=== PATIENT | female | born 1985 | race Hispanic/Latino ===

== ENCOUNTER 2017-03-28 20:29 | Emergency (ER) | payer BC, MEDICAID ==
[2017-03-28 21:14] VITALS: BMI 32.5
[2017-03-28 21:44] LABS: BASO # 0.1 K/uL (0.0-0.2); BASO % 0.5 % (0.0-2.0); EOS # 0.2 K/uL (0.0-0.7); HEMOGLOBIN 10.3 g/dL (12.0-16.0); LYMPH # 2.6 K/uL (1.0-4.3); LYMPH % 16.3 % (20.0-40.0); MEAN CELL VOLUME 90.2 fl (81.0-99.0); MEAN CORPUSCULAR HEMOGLOBIN 29.5 pg (27.0-31.0); MEAN CORPUSCULAR HGB CONC 32.7 g/dL (33.0-37.0); MEAN PLATELET VOLUME 9.1 fl (7.2-11.7); MONO # 1.4 K/uL (0.0-0.8); MONO % 8.7 % (0.0-10.0); NEUT # 11.8 K/uL (1.8-7.0); NEUT % 73.5 % (50.0-75.0); RBC 3.49 Mil/uL (3.80-5.20); RED CELL DISTRIBUTION WIDTH 12.5 % (11.5-14.5); WHITE BLOOD COUNT 16.1 K/uL (4.8-10.8)
[2017-03-28 22:08] LABS: ALB/GLOB RATIO 1.1 (1.0-2.1); ALBUMIN 3.6 g/dL (3.5-5.0); ALT/SGPT 41 U/L (9-52); AMYLASE 74 U/L (30-110); AST/SGOT 31 U/L (14-36); BILIRUBIN,DIRECT 0.3 mg/ml (0.0-0.4); BLOOD UREA NITROGEN 10 mg/dl (7-17); CALCIUM 9.2 mg/dL (8.4-10.2); GFR AFRICAN-AMERICAN > 60; GFR NON-AFRICAN AMERICAN > 60; LIPASE 65 U/L (23-300)
[2017-03-29 03:08] VITALS: BP 92/54; PULSE 96; RESP 17; TEMP 98.7
--- NOTE | 2017-03-29 18:09 | CARD ---
APPROVED REPORT EKG Measurement Heart [id number] NJ [id number] [id number] <Conclusion> Normal sinus rhythm Incomplete right bundle branch block Borderline ECG
== END 2017-03-28 22:50 | disposition home or self-care (01) ==
LOC: H.EROB2 20:29
DX: O26.93 Pregnancy related conditions, unspecified, third trimester (principal); R10.13 Epigastric pain; R07.9 Chest pain, unspecified; O47.03 False labor before 37 completed weeks of gestation, third trimester; Z3A.31 31 weeks gestation of pregnancy

== ENCOUNTER 2017-05-22 06:36 | Inpatient (IN) | payer BC ==
[2017-05-22 06:40] VITALS: BMI 27.4
[2017-05-22] MEDS ORDERED: Lactated Ringer's 1,000 ML IV SCH (06:45)
[2017-05-22] MEDS ORDERED: ceFAZolin IV 2 gm in Dextrose 2 GM/50 ML BAG IVPB ONE (07:00)
[2017-05-22] MEDS: Lactated Ringer's 1,000 ML IV SCH ×4 (07:10→22:19)
[2017-05-22 07:29] LABS: BASO # 0.1 K/uL (0.0-0.2); BASO % 0.8 % (0.0-2.0); EOS # 0.2 K/uL (0.0-0.7); HEMOGLOBIN 10.6 g/dL (12.0-16.0); LYMPH # 2.6 K/uL (1.0-4.3); LYMPH % 16.9 % (20.0-40.0); MEAN CELL VOLUME 87.5 fl (81.0-99.0); MEAN PLATELET VOLUME 10.1 fl (7.2-11.7); MONO # 1.3 K/uL (0.0-0.8); MONO % 8.3 % (0.0-10.0); NEUT # 11.1 K/uL (1.8-7.0); RBC 3.8 Mil/uL (3.80-5.20); RED CELL DISTRIBUTION WIDTH 14.3 % (11.5-14.5); WHITE BLOOD COUNT 15.2 K/uL (4.8-10.8)
[2017-05-22] MEDS ORDERED: Oxytocin 30 units/LR 500ML 30 U/500 ML BAG IV ONE (07:35)
[2017-05-22] MEDS ORDERED: Morphine 5 mg/10 ml preservative-free Inj(Duramorph) ONE (09:53)
[2017-05-22] MEDS ORDERED: ePHEDrine 50 mg/ml Inj ONE (09:53)
[2017-05-22] MEDS ORDERED: Phenylephrine 10 mg/ml Inj ONE (09:53)
[2017-05-22] MEDS ORDERED: Oxycodone/Acetaminophen 5/325 mg Tab PO PRN ×5 (10:51→14:58)
--- NOTE | 2017-05-22 12:36 | OBADHP ---
Datetime: 05/22/2017 07:22 Admit Comment, IP Provider: 31 y/o F at 39 weeks GA, SAMIRA 05/28/17 by LMP 08/21/16, presents for scheduled repeat . FM present. No LOF, VB or CTX's. Pt reports having high amounts of amnio tic fluid. All systems reviewed and negative except as above. NKDA Meds: PNV, Iron. PN Care: [place] PN Labs: GBS neg, Rubella immune, blood group O pos, Antibody neg. OBHx: , 2x induced . 1x in 2011. PMHx: denied PSHx: denied FHx: NC SHx: No tobacoo, alcohol or rec drugs during . A/P 31 y/o F with IUP at 39.1 weeks GA, for scheduled repeat . --Admit to L and D --Initiate protocol. Case discussed with Dr James ODEN trade union official [facility] Patient was seen with the resident I agree with the note Extremities - PN: Normal Abdomen - PN: Normal Back - PN: Normal Lungs - PN: Normal Heart - PN: Normal Thyroid - PN: Normal Neurologic - PN: Normal HEENT - PN: Normal General - PN: Normal FHR - Baseline A Provider: 145 IP Hx Assessment: The History has been Reviewed and is Current Vital Signs Provider: Reviewed IP Chief Complaint: Scheduled Section NICHD Variability Prov Fetus A: Moderate 6-25bpm NICHD Accel Fetus A IP Provider: [id number] FHR Category Provider Fetus A: Category I DTRs - PN: Normal EGA AdmitDate IP: 39.1 IP Adm Impression: Term, intrauterine IP Admit Plan: Admit to unit; Initiate Section protocol Datetime: 03/28/2017 21:22 Pelvic Type - PN: Adequate Breast - PN: Not Done Contraction Comments Provider: quiet NICHD Decel Fetus A IP Provider: None Genitourinary Exam: Not Done
--- NOTE | 2017-05-22 12:53 | OBDS ---
DELIVERY PERSONNEL Delivery Doctor: Joana Ramirez MD Scrub Nurse: Kealyn Barrera OBT Retail Training Manager: Sherice Puga RN/Victor Hugo Ross Anesthesiologist: MATERNAL INFORMATION Delivery Anesthesia: Spinal Maternal Complications: None Provider Comments: See operative report LABOR SUMMARY EDC: 05/28/2017 00:00 No. Babies in Womb: 1 LABOR INFORMATION Group B Beta Strep: Positive (Annotations: 2/26/18) STAGES OF LABOR Stage 3 hrs: 0 Stage 3 min: 1 BABY A INFORMATION Infant Delivery Date/Time: 05/22/2017 10:23 Method of Delivery: Born in Route : No : N/A Forceps: N/A Vacuum Extraction: N/A Shoulder Dystocia : No SHOULDER DYSTOCIA BABY A Infant Delivery Date/Time: 05/22/2017 10:23 PRESENTATION/POSITION BABY A Presentation: Cephalic Breech Presentation: N/A PLACENTA INFORMATION BABY A Placenta Delivery Time : 05/22/2017 10:24 Placenta Method of Delivery: Manual Removal Placenta Status: Delivered SCORES BABY A Heart Rate 1 min: >100 bpm Resp Effort 1 min: Good Cry Reflex Irritability 1 min: Cough or Sneeze or Pulls Away Muscle Tone 1 min: Active Motion Color 1 min: Body Maceo, Extremities Blue Resuscitation Effort 1 min: Tactile Stimulation SCORE 1 MIN: 9 Heart Rate 5 min: >100 bpm Resp Effort 5 min: Good Cry Reflex Irritability 5 min: Cough or Sneeze or Pulls Away Muscle Tone 5 min: Active Motion Color 5 min: Body Maceo, Extremities Blue Resuscitation Effort 5 min: Tactile Stimulation SCORE 5 MIN: 9 INFANT INFORMATION BABY A Gestational Age at Delivery: 39.1 Gestational Status: Term Outcome : Liveborn Infant Condition : Stable Sex: Female IDENTIFICATION/MEDS BABY A ID Band Number: [id number] WEIGHT/LENGTH BABY A Birthweight (gms): 3770 Weight (lb): 8 Infant Weight (oz): 5 Length Inches: 21.50 Infant Length cms: 54.6 CORD INFORMATION BABY A No. Cord Vessels: 3 Nuchal Cord : Around Neck x2, Loose Cord Blood Taken: Yes Suction: Mouth ASSESSMENT BABY A Infant Complications: None Physical Findings at Delivery: Within Normal Limits Physical Findings Other: voided x1 Respirations: Appears Normal Information Systems Professor/ALS Called : No Infant Care By: /Silva Transferred To: Remains with Mother
--- NOTE | 2017-05-22 13:56 | OP ---
PROCEDURE DATE: PREOPERATIVE DIAGNOSES: Intrauterine at 39 plus weeks, history of previous section, the patient declined trial of labor for elective repeat delivery. POSTOPERATIVE DIAGNOSES: Intrauterine at 39 plus weeks, history of previous section, the patient declined trial of labor for elective repeat delivery. OPERATION PERFORMED: Repeat low flap transverse section via Pfannenstiel skin incision. SURGEON: Rachael Ramirez MD BLOCK CLEANER: assisted the procedure, he was helpful in taking care of the patient, creating exposure, delivery of the infant and closure of the patient. Procedure would not have been possible without his assistance. TYPE OF ANESTHESIA: Spinal. ANESTHESIA ADMINISTERED BY: Ernesto Nickerson MD ESTIMATED BLOOD LOSS: 800 mL. URINE OUTPUT: Ordoñez catheter put out approximately 150 mL of clear urine. IV FLUID INTAKE: The patient received approximately 1200 mL of D5 LR intraoperatively. OPERATIVE FINDINGS: Baby, vertex presentation, Apgars 9 and 9, weighing 3770 g, 8 pounds 5 ounces, baby girl. DESCRIPTION OF PROCEDURE: After informed consent was obtained, the patient was taken to the operating room where she was given spinal anesthesia. She was then prepped and draped in a normal sterile fashion with a leftward tilt. Pfannenstiel skin incision was then made with a scalpel and carried down to the underlying layer of the fascia. The fascia was nicked in the midline. The fascial incision was then extended laterally with the curved Cottrell scissors. Superior aspect of the fascial incision was then grasped with Mary Kate clamps, elevated up and the rectus muscles were dissected off using both sharp and blunt dissection. Attention was then turned to the inferior aspect of the fascial incision, which in a similar fashion was grasped with Mary Kate clamps, elevated up, and the rectus muscles were dissected off using both sharp and blunt dissection. The rectus muscles were then in the midline. The peritoneum identified and then entered sharply with the Metzenbaum scissors. The peritoneal was then extended superiorly and inferiorly with good visualization of the bladder. The bladder blade was then inserted. The vesicouterine peritoneum was identified and entered sharply with the Metzenbaum scissors. The incision was then extended laterally. The bladder flap was created digitally. The bladder blade was then readjusted. A low transverse incision was then made with a scalpel. The incision was then extended laterally with the bandage scissors. The infant's head was delivered atraumatically. Nose and mouth were suctioned. There were two loose nuchal cords. The was then delivered atraumatically. The nose and mouth were suctioned with DeLee suction trap. The cord was clamped and cut. The infant was handed off to awaiting pediatricians. The placenta was then removed manually. The uterus was exteriorized and cleared of all clots and debris. The uterine incision was repaired with 0 Vicryl in a running locked fashion. The second layer of the same suture was used to obtain excellent hemostasis. The uterus was returned to the abdomen. The abdomen was then copiously irrigated. The irrigant was removed with a suction device. The gutters were cleared off all clots and debris. Hemostasis was noted. The peritoneal incision was then closed with 2-0 Vicryl in a running fashion. The muscle was re-approximated with 0 Vicryl in an interrupted fashion. The fascia was closed with 0 Vicryl in a running fashion. The skin was closed with 4-0 on a Russell needle. All sponge, lap, needle, and instrument counts were correct x2, and the patient was taken to the recovery room in awake and stable condition. Rachael Ramirez MD
[2017-05-22] MEDS ORDERED: Simethicone 80 mg Chewtab PO SCH ×2 (16:00)
[2017-05-23] MEDS: Multivitamin With Minerals Tab PO SCH (08:13)
--- NOTE | 2017-05-23 08:52 | OBPPN ---
Datetime: 05/23/2017 08:46 PP Pain Prov: Within normal limits PP Nausea Prov: Denies PP Flatus Prov: Yes PP BM Prov: No PP Lochia Prov: Normal PP Extremities Prov: Normal PP C/S Incision Prov: Normal PP Progress Prov: Normal PP Comments Phys Exam Prov: Incision w/ bandage in place PP Impression Prov: Normal progression PP Progress Note Prov: POD 1 s/p Repeat cesrean section, doing well, trying to breast feed, ambulati ng, tolerating reg diet Encourage ambulation cosmetic sales consultant to see her Vital Signs Provider PP: Reviewed
[2017-05-23] MEDS ORDERED: Multivitamin With Minerals Tab PO SCH (09:00)
[2017-05-23 09:23] LABS: BASO % 0.3 % (0.0-2.0); EOS # 0.1 K/uL (0.0-0.7); EOS % 0.4 % (0.0-4.0); HEMOGLOBIN 9.6 g/dL (12.0-16.0); LYMPH # 1.9 K/uL (1.0-4.3); LYMPH % 12.2 % (20.0-40.0); MEAN CELL VOLUME 86.6 fl (81.0-99.0); MEAN CORPUSCULAR HGB CONC 33.5 g/dL (33.0-37.0); MEAN PLATELET VOLUME 9.4 fl (7.2-11.7); MONO # 0.9 K/uL (0.0-0.8); MONO % 6.2 % (0.0-10.0); NEUT # 12.3 K/uL (1.8-7.0); NEUT % 80.9 % (50.0-75.0); NRBC % 0.1 % (0.0-0.0); RBC 3.3 Mil/uL (3.80-5.20); RED CELL DISTRIBUTION WIDTH 14.3 % (11.5-14.5); WHITE BLOOD COUNT 15.2 K/uL (4.8-10.8)
[2017-05-23] MEDS ORDERED: Influenza Vaccine 18yr & older 0.5 ML/45 MCG SYR IM ONE (10:00)
[2017-05-23] MEDS ORDERED: Benzocaine/Menthol (Cepacol) Lozenge PO SCH (22:00)
[2017-05-23] MEDS: guaiFENesin DM 200 mg-20 mg/10 ml UD PO PRN (22:12)
[2017-05-24] MEDS ORDERED: Benzocaine/Menthol (Cepacol) Lozenge PO PRN (01:24)
[2017-05-24] MEDS: guaiFENesin DM 200 mg-20 mg/10 ml UD PO PRN ×2 (04:54→11:39)
[2017-05-24] MEDS: Multivitamin With Minerals Tab PO SCH (10:00)
--- NOTE | 2017-05-24 10:38 | OBDCSUM ---
Datetime: 05/24/2017 10:35 Discharged to, Provider: Home Follow up at, Provider: [facility] Disch Instr Activity: Normal activity Disch Instr Diet: Regular Discharge Instructions, Provider: Routine instructions given Discharge Diagnosis, Provider: Term Delivered Follow up in weeks, Provider: 1-2w Disch Referrals: None Contraception discussed, Prov: Yes Disch Activity Restrictions: No lifting; No sexual activity; Nothing in vagina - [place], tampon s, douche
--- NOTE | 2017-05-24 10:38 | OBPPN ---
Datetime: 05/24/2017 10:34 PP Pain Prov: Within normal limits PP Nausea Prov: Denies PP Flatus Prov: Yes PP BM Prov: Yes PP Breasts Prov: Normal PP Heart Prov: Normal PP Lungs Prov: Normal PP Abdomen/Uterus Prov: Normal PP Lochia Prov: Normal PP Vulva/Perineum Prov: Normal PP CVA Tenderness Prov: Normal PP Extremities Prov: Normal PP C/S Incision Prov: Normal PP Progress Prov: Normal PP Impression Prov: Normal progression PP Plan Prov: Discharge PP Progress Note Prov: Notified that she wants to go home. SHe had BM today. Feels fine. Tolerating diet and ambualting without diff A: S/P C/S day 2 anemia - asymptomatic PLAN: discharge home and follow up 1-2w Vital Signs Provider PP: Reviewed; Within Normal Limits
[2017-05-24 20:26] VITALS: BP 108/62; PULSE 90; RESP 20; TEMP 98.9; O2SAT 100
== END 2017-05-24 16:25 | disposition home or self-care (01) | DRG 766 ==
LOC: H.L&D 06:36 → H.OB/GYN 12:30
PROVIDERS: ADMIT Obstetrics & Gynecology; ATTEND Obstetrics & Gynecology
PROC: 10D00Z1 Extraction of Products of Conception, Low, Open Approach (ICD-10-PCS; principal; 2017-05-22)
PROC: 4A1HXCZ Monitoring of Products of Conception, Cardiac Rate, External Approach (ICD-10-PCS; 2017-05-22)
DX: O34.211 Maternal care for low transverse scar from previous cesarean delivery (principal); N85.8 Other specified noninflammatory disorders of uterus; Z37.0 Single live birth; O69.81X0 Labor and delivery complicated by cord around neck, without compression, not applicable or unspecified; Z3A.39 39 weeks gestation of pregnancy

== ENCOUNTER 2017-08-27 23:40 | Emergency (ER) | payer BC ==
[2017-08-27 23:40] VITALS: BMI 27.4
[2017-08-27 23:49] VITALS: PULSE 76; RESP 18; TEMP 98.2; O2SAT 100
[2017-08-28] MEDS ORDERED: Sodium Chloride 0.9% 1,000 ML IV STA (00:36)
--- NOTE | 2017-08-28 00:43 | ED PDOC ---
HPI: Abdomen Time Seen by Provider: 08/28/17 00:09 Chief Complaint (Nursing): Abdominal Pain Chief Complaint (Provider): abdominal pain History Per: Patient History/Exam Limitations: no limitations Onset/Duration Of Symptoms: Days (2 weeks) Current Symptoms Are (Timing): Still Present Location Of Pain/Discomfort: Suprapubic Quality Of Discomfort: Cramping, "Pain" Associated Symptoms: Nausea, Vomiting Additional Complaint(s): 31 y/o female presents for evaluation of lower abdominal pain x 2 weeks after having Mirena IUD placed. Patient notes associated vaginal bleeding x 1 week. Patient was evaluated by her Garment Worker, Dr. Rachael Ramirez, today and was sent for outpatient u/s after he could not locate IUD string. Patient presents to ED aure stating she is worried about the pain. Patient also notes 3 episodes of vomiting today, but states she randomly vomits and has had "stomach issues" for quite sometime so is unsure if it could be related to IUD. Denies fever, chest pain, shortness of breath, palpitations, back pain, changes in bowel movements, urinary symptoms. Past Medical History Reviewed: Historical Data, Nursing Documentation, Vital Signs Vital Signs: Last Vital Signs Temp 98.2 F 08/27/17 23:46 Pulse 76 08/27/17 23:46 Resp 18 08/27/17 23:46 BP 106/71 08/27/17 23:46 Pulse Ox 100 08/28/17 02:04 - Medical History PMH: No Chronic Diseases Denies: Depression, Diabetes, HTN - Surgical History Surgical History: - Family History Family History: States: No Known Family Hx - Home Medications Home Medications: Ambulatory Orders Medication Instructions Recorded Ibuprofen [Motrin] 600 mg PO Q6H PRN #20 tab 05/24/17 oxyCODONE/Acetaminophen [Percocet 1 ea PO Q4H PRN #20 tab 05/24/17 5/325 mg Tab] - Allergies Allergies/Adverse Reactions: Allergies Allergy/AdvReac Type Severity Reaction Status Date / Time No Known Allergies Allergy Verified 08/27/17 23:46 Review of Systems ROS Statement: Except As Marked, All Systems Reviewed And Found Negative Gastrointestinal: Positive for: Nausea, Vomiting Genitourinary Female: Positive for: Vaginal Bleeding, Pelvic Pain Physical Exam - Reviewed Nursing Documentation Reviewed: Yes Vital Signs Reviewed: Yes - Physical Exam Appears: Positive for: Well, Non-toxic, No Acute Distress Head Exam: Positive for: ATRAUMATIC, NORMAL INSPECTION, NORMOCEPHALIC Skin: Positive for: Normal Color Eye Exam: Positive for: Normal appearance ENT: Positive for: Normal ENT Inspection Cardiovascular/Chest: Positive for: Regular Rate, Rhythm Respiratory: Positive for: Normal Breath Sounds Gastrointestinal/Abdominal: Positive for: Bowel Sounds, Soft, Tenderness ( suprapubic, LLQ) Pelvic Exam: Positive for: External Exam Normal, No Cerv. Motion Tender, Blood ( no acitve bleeding. dark blood/brown discharge in vaginal vault), Other (IUD string not visualized. exam dam tender [facility] tech). Negative for: Active Bleeding, Tender Adnexa, Tender Uterus Back: Positive for: Normal Inspection Extremity: Positive for: Normal ROM Neurologic/Psych: Positive for: Alert, Oriented - Laboratory Results Result Diagrams: 08/28/17 01:20 08/28/17 01:20 - ECG O2 Sat by Pulse Oximetry: 100 - Progress ED Course And Treament: labs, urine, IV fluids, IV zofran, CT abd/pelvis EXAM: CT Abdomen and Pelvis Without Intravenous Contrast CLINICAL HISTORY: 31 years old, female; Pain; Other: Pelvic pain; Prior surgery ; Surgery date: 6+ months; Surgery type: ; Additional info: Pelvic pain, iud placed 2 weeks ago TECHNIQUE: Axial computed tomography images of the abdomen and pelvis without intravenous contrast. All CT scans at this facility use at least one of these dose optimization techniques: automated exposure control; mA and/or kV adjustment per patient size (includes targeted exams where dose is matched to clinical indication); or iterative reconstruction. COMPARISON: No relevant prior studies available. FINDINGS: Lung bases: Unremarkable. No mass. No consolidation. ABDOMEN: Liver: Unremarkable. Gallbladder and bile ducts: Unremarkable. No calcified stones. No ductal dilation. Pancreas: Unremarkable. No ductal dilation. Spleen: Unremarkable. No splenomegaly. Adrenals: Unremarkable. No mass. Kidneys and ureters: Unremarkable. No obstructing stones. No hydronephrosis. Stomach and bowel: Moderate fecal retention in the colon consistent with constipation. No obstruction. No mucosal thickening. PELVIS: Appendix: Normal appendix. Bladder: Unremarkable. No stones. Reproductive: IUD in uterus in good position. ABDOMEN and PELVIS: Intraperitoneal space: Unremarkable. No free air. No significant fluid collection. Bones/joints: No acute fracture. No dislocation. Soft tissues: Unremarkable. Vasculature: Unremarkable. No abdominal aortic aneurysm. Lymph nodes: Unremarkable. No enlarged lymph nodes. IMPRESSION: 1. Moderate fecal retention in the colon consistent with constipation. 2. IUD in uterus in good position. Patient educated on findings; states last BM today. Declines medication at this time Advised high fiber diet, fluids, OTC stool softeners Follow up PMD and Garment Worker Return precautions given Disposition - Clinical Impression Clinical Impression: Abdominal cramps, Constipation, IUD strings lost - Patient ED Disposition Is Patient to be Admitted: No Counseled Patient/Family Regarding: Studies Performed, Diagnosis, Need For Followup - Disposition Disposition: Routine/Home Disposition Time: 02:14 Condition: IMPROVED Instructions: Acute Abdomen (Belly Pain), Constipation in Adults Forms: [facility] (Korean)
[2017-08-28 01:38] LABS: BASO # 0.1 K/uL (0.0-0.2); BASO % 1.5 % (0.0-2.0); EOS # 0.2 K/uL (0.0-0.7); EOS % 2.2 % (0.0-4.0); HEMOGLOBIN 12.3 g/dL (12.0-16.0); LYMPH # 2.6 K/uL (1.0-4.3); LYMPH % 38.2 % (20.0-40.0); MEAN CELL VOLUME 85.3 fl (81.0-99.0); MEAN CORPUSCULAR HEMOGLOBIN 28.4 pg (27.0-31.0); MEAN CORPUSCULAR HGB CONC 33.3 g/dL (33.0-37.0); MEAN PLATELET VOLUME 8.7 fl (7.2-11.7); MONO # 0.5 K/uL (0.0-0.8); MONO % 7.9 % (0.0-10.0); NEUT # 3.4 K/uL (1.8-7.0); NEUT % 50.2 % (50.0-75.0); RBC 4.34 Mil/uL (3.80-5.20); RED CELL DISTRIBUTION WIDTH 15.1 % (11.5-14.5); WHITE BLOOD COUNT 6.8 K/uL (4.8-10.8)
[2017-08-28 02:01] LABS: ALB/GLOB RATIO 1.2 (1.0-2.1); ALT/SGPT 27 U/L (9-52); AST/SGOT 21 U/L (14-36); BLOOD UREA NITROGEN 18 mg/dl (7-17); CALCIUM 9.7 mg/dL (8.4-10.2); GFR AFRICAN-AMERICAN > 60; GFR NON-AFRICAN AMERICAN > 60
[2017-08-28 02:24] VITALS: BP 105/61
--- NOTE | 2017-08-28 10:52 | CT ---
PROCEDURE: CT Abdomen and Pelvis without intravenous contrast HISTORY: pelvic pain, IUD placed 2 weeks ago COMPARISON: None. TECHNIQUE: Technique. Contrast dose: None Radiation dose: Total exam DLP = 481 mGy-cm. This CT exam was performed using one or more of the following dose reduction techniques: Automated exposure control, adjustment of the mA and/or kV according to patient size, and/or use of iterative reconstruction technique. FINDINGS: LOWER THORAX: Unremarkable. LIVER: Unremarkable. No gross lesion or ductal dilatation. GALLBLADDER AND BILE DUCTS: Unremarkable. PANCREAS: Unremarkable. No gross lesion or ductal dilatation. SPLEEN: Unremarkable. ADRENALS: Unremarkable. No mass. KIDNEYS AND URETERS: Unremarkable. No hydronephrosis. No solid mass. VASCULATURE: Unremarkable. No aortic aneurysm. BOWEL: Moderate stool retention. . No obstruction. No gross mural thickening. APPENDIX: Unremarkable. Normal appendix. PERITONEUM: Unremarkable. No free fluid. No free air. LYMPH NODES: Unremarkable. No enlarged lymph nodes. BLADDER: Unremarkable. REPRODUCTIVE: Physiologic follicular type changes in each ovary right greater than left inferred. IUD in uterus noted BONES: No acute fracture. OTHER FINDINGS: None. IMPRESSION: Moderate stool retention. No bowel obstruction No urolithiasis. No hydronephrosis. Intrauterine IUD. Physiologic appearing ovarian follicular cystic changes inferred. Concordant results (preliminary interpretation) provided by [facility].
== END 2017-08-28 02:25 | disposition home or self-care (01) ==
LOC: H.ER 23:40
DX: R10.9 Unspecified abdominal pain (principal); K59.00 Constipation, unspecified; T83.32XA Displacement of intrauterine contraceptive device, initial encounter
CPT/HCPCS: 74176; 80053; 81025; 85025; 96360; 99283; J7030